=== PATIENT | female | born 1985 | race Caucasian/White ===

== ENCOUNTER 2018-04-29 10:18 | Outpatient (CLI) | payer OTHER ==
[~2018-04-29] VITALS: Ht 165.1 cm; Wt 101.9 kg
[~2018-04-29 10:18] MED LIST: DCS100C PO; DOCU100C37 PO; IBP800T PO; IBUP-1780 PO; LBT200T PO; OXYC-465 PO; OXYC1TAB12 PO; PREN1TAB71 PO
[2018-04-29] MEDS ORDERED: AMPH30TA2 PO (10:32)
[2018-04-29 10:36] VITALS: BP 128/82
[2018-04-29 11:19] LABS: BASOPHILS % (AUTO) 0 % (0-10); EOSINOPHILS # (AUTO) 0.2 10^3/uL (0.0-0.3); EOSINOPHILS % (AUTO) 2 % (0-10); HEMATOCRIT 43 % (35-52); HEMOGLOBIN 14.4 G/DL (11.5-16.0); LYMPHOCYTES # (AUTO) 2.4 X 10^3 (1.0-4.0); LYMPHOCYTES % (AUTO) 21 % (12-44); MEAN CORPUSCULAR HEMOGLOBIN 29 PG (25-34); MEAN CORPUSCULAR HGB CONC 33 G/DL (32-36); MEAN CORPUSCULAR VOLUME 87 FL (80-99); MEAN PLATELET VOLUME 9.5 FL (7.4-10.4); MONOCYTES # (AUTO) 0.9 X 10^3 (0.0-1.0); MONOCYTES % (AUTO) 8 % (0-12); NEUTROPHILS # (AUTO) 7.9 X 10^3 (1.8-7.8); NEUTROPHILS % (AUTO) 69 % (42-75); PLATELET COUNT 400 10^3/uL (130-400); RED BLOOD COUNT 4.99 10^6/uL (4.35-5.85); RED CELL DISTRIBUTION WIDTH 13.5 % (10.0-14.5); WHITE BLOOD COUNT 11.5 10^3/uL (4.3-11.0)
== END 2018-04-29 11:40 | disposition home or self-care (01) ==
LOC: PREOP 10:18
PROVIDERS: ATTEND Obstetrics & Gynecology
DX: Z01.812 Encounter for preprocedural laboratory examination (principal); Z11.2 Encounter for screening for other bacterial diseases; N93.8 Other specified abnormal uterine and vaginal bleeding; N92.0 Excessive and frequent menstruation with regular cycle; R10.2 Pelvic and perineal pain; D64.9 Anemia, unspecified
CPT/HCPCS: 36415; 85025; 86850; 86900; 86901; 87081

== ENCOUNTER 2018-05-01 06:10 | Day surgery (SDC) | payer OTHER ==
[~2018-05-01] VITALS: Ht 165.1 cm; Wt 100.8 kg
[~2018-05-01 06:10] MED LIST changes: +AMPH30TA2 PO
[2018-05-01 06:25] VITALS: BP 144/79
[2018-05-01] MEDS ORDERED: ceFAZolin INJECTION 1,000 MG in NS (IVPB) 50 ML IV ONE (06:30)
[2018-05-01] MEDS ORDERED: BUP/EPI 0.5% 1:200,000 (SENSORCAINE) 30 ML VIAL ONE (06:42)
[2018-05-01] MEDS ORDERED: ONDANSETRON 4 MG/2 ML (SDV) Z0FRAN ONE ×2 (06:49→07:00)
[2018-05-01] MEDS ORDERED: LIDOCAINE PF 2% 5 ML (XYLOCAINE) VIAL ONE (06:49)
[2018-05-01] MEDS ORDERED: ROCURONIUM 10 MG/ML 5 ML SYRINGE IV ONE (06:49)
[2018-05-01] MEDS ORDERED: LACTATED RINGERS 1,000 ML IV PRN (06:49)
[2018-05-01] MEDS ORDERED: LACTATED RINGERS 1,000 ML IV ONE (06:49)
[2018-05-01] MEDS ORDERED: proPOfol 200 MG/20 ML (DIPRIVAN) VIAL IV ONE (06:49)
[2018-05-01] MEDS ORDERED: MIDAZOLAM 2 MG/2 ML (VERSED) VIAL ONE (06:50)
[2018-05-01] MEDS ORDERED: fentaNYL INJECTION 100 MCG/2 ML AMP ONE ×3 (06:50→09:45)
[2018-05-01] MEDS ORDERED: DEXAMETHASONE 10 MG/ML (DECADRON) 1 ML VIAL ONE (06:55)
[2018-05-01] MEDS ORDERED: SEVOFLURANE (ULTANE) 15 ML INHAL SOLN ONE ×8 (06:55→09:09)
[2018-05-01] MEDS ORDERED: FAMOTIDINE 20MG/2ML IV (PEPCID) IV ONE (07:00)
[2018-05-01] MEDS ORDERED: SCOPOLAMINE 1.5 MG (TRANSDERM-SCOP) PATCH TOP ONE (07:00)
[2018-05-01] MEDS ORDERED: SCOPOLAMINE 1.5 MG (TRANSDERM-SCOP) PATCH ONE (07:00)
[2018-05-01] MEDS ORDERED: ONDANSETRON 4 MG/2 ML (SDV) Z0FRAN IV ONE (07:00)
[2018-05-01] MEDS ORDERED: FAMOTIDINE 20MG/2ML IV (PEPCID) ONE (07:01)
--- NOTE | 2018-05-01 07:33 | Progress Note-Pre Operative ---
Pre-Operative Progress Note H&P Reviewed The H&P was reviewed, patient examined and no changes noted. Date Seen by Provider: May 01, 2018 Time Seen by Provider: 07:33 Date H&P Reviewed: May 01, 2018 Time H&P Reviewed: 07:33 Pre-Operative Diagnosis: Dysfunctional bleeding/menorrhagia/chronic pelvic pain LATRELL KINSEY MD May 01, 2018 7:33 am
[2018-05-01] MEDS ORDERED: D5 LR IV SOLUTION 1,000 ML IV SCH (07:34)
--- NOTE | 2018-05-01 07:34 | Progress Note-Post Operative ---
Post-Operative Progess Note Surgeon (s)/Slope Tender (s) Surgeon LATRELL KINSEY MD Slope Tender: Tiff Werner Pre-Operative Diagnosis Dysfunctional bleeding/menorrhagia/chronic pelvic pain Post-Operative Diagnosis Same with pathology pending Procedure & Operative Findings Date of Procedure 05/01/18 Procedure Performed/Findings TLH with a bilateral salpingectomy Anesthesia Type GETA Estimated Blood Loss Estimated blood loss (mL): Minimal Specimens/Packing Specimens Removed Uterus and fallopian tubes Packing: None required LATRELL KINSEY MD May 01, 2018 07:34
[2018-05-01] MEDS ORDERED: IBUP-1780 PO (07:38)
[2018-05-01] MEDS ORDERED: DOCU-143 PO (07:38)
[2018-05-01] MEDS ORDERED: OXYC1TAB87 PO ×2 (07:38→09:45)
--- NOTE | 2018-05-01 07:39 | Discharge Instructions ---
Discharge Instructions Discharge Medications New, Converted or Re-Newed RX: RX on Chart Patient Instructions Patient Instructions: As directed Return to The Hospital For: DIRECTED Activity & Diet Discharge Diet: No Restrictions Activity as Tolerated: No Orders-Post D/C & Referrals Follow Up Appt: Return to clinic on Friday, May 04, 2018 at 930 a.m. for staple removal Call to make follow up appt. for patient in 4 weeks. Activity: Rest for 24 hours, than as tolerated. Wound Care: May remove Band-Aid tomorrow. Replace as desired. Keep incisions clean and dry. Wash daily with soap and water. Please call in RX to patient pharmacy. Diet: As tolerated-Clear Liquids only if nauseated. Tomorrow, may shower or tub bathe as desired. No driving for 24 hours, no alcoholic beverages for 24 hours, and nothing per vagina (no tampons, douching, or intercourse) for 8 weeks. Patient to return to the clinic as soon as possible for: Temperature greater than 101F, Severe Pain, Foul discharge from incision or vagina, Excessive Bleeding (more than a period). LATRELL KINSEY MD May 01, 2018 7:39 am
[2018-05-01] MEDS ORDERED: PROMETHAZINE INJ 25 MG/ML (PHENERGAN) AMP IM PRN (07:45)
[2018-05-01] MEDS ORDERED: oxyCODONE/APAP 5/325MG (PERCOCET 5) TABLET PO PRN ×2 (07:45→09:45)
[2018-05-01] MEDS ORDERED: KETOROLAC 30 MG/ML VIAL IVP SCH ×2 (07:45→15:30)
[2018-05-01] MEDS ORDERED: MEPERIDINE (DEMEROL) INJ 100 MG/ML IM PRN (07:45)
[2018-05-01] MEDS ORDERED: ONDANSETRON 4 MG/2 ML (SDV) Z0FRAN IVP PRN ×2 (07:45→09:30)
[2018-05-01] MEDS ORDERED: KETOROLAC 30 MG/ML VIAL ONE (09:07)
[2018-05-01] MEDS ORDERED: GLYCOPYRROLATE 0.2 MG/ML (ROBINUL) 2 ML VIAL ONE (09:08)
[2018-05-01] MEDS ORDERED: NEOSTIGMINE 1 MG/ML 5 ML SYRINGE ONE (09:08)
[2018-05-01] MEDS ORDERED: morphine INJ 10 MG/ML 1ML (SYR OR VIAL) ONE (09:28)
[2018-05-01] MEDS ORDERED: morphine INJ 10 MG/ML 1ML (SYR OR VIAL) IVP ONE (09:30)
[2018-05-01] MEDS ORDERED: fentaNYL INJECTION 100 MCG/2 ML AMP IVP ONE (09:30)
[2018-05-01] MEDS ORDERED: MEPERIDINE (DEMEROL) INJ 50 MG/ML IVP ONE (09:30)
[2018-05-01] MEDS ORDERED: KETOROLAC 30 MG/ML VIAL IVP ONE (09:30)
--- NOTE | 2018-05-01 09:57 | OPERATIVE REPORT ---
DATE OF SERVICE: 05/01/2018 PREOPERATIVE DIAGNOSES: Dysfunctional uterine bleeding, chronic pelvic pain, menorrhagia. POSTOPERATIVE DIAGNOSES: Dysfunctional uterine bleeding, chronic pelvic pain, menorrhagia with pathology pending. OPERATIVE PROCEDURE: Total laparoscopic hysterectomy with bilateral salpingectomy. OPERATIVE DESCRIPTION: With the patient in the supine position under satisfactory general anesthesia, she was repositioned in dorsal lithotomy position in the [facility] and prepped and draped in the usual fashion for abdominal and vaginal surgery using robotic assistance. Weighted speculum placed in the posterior fornix of vagina, cervix exposed and grasped anteriorly with single tooth tenaculum. Uterus was sounded to 13 cm with uterine sound. Cervix was then serially dilated with Mahin dilators to accommodate a Emilia II manipulator, which was placed and the bulb filled with sterile saline. Sutures of #1 Vicryl were placed at the 3 and 9 o'clock position of cervix to affix the uterus to the manipulator. The manipulator used a 6 mm x 8 cm uterine probe and a 25 mm colpotomy ring. Ragland catheter was placed in the urinary bladder and left to dependent drainage. The patient brought in low dorsolithotomy position. A 12 mm incision made superior to the umbilicus. Veress needle was placed through that incision, correct placement confirmed with water drop test. The abdomen was insufflated with 2.4 liters of carbon dioxide and the Veress needle was removed and attempt was made to place the 12 mm port at that site. That was unsuccessful. Rather than risk more trauma to the abdomen, a 5 mm port was then placed in the left upper quadrant. Then, under direct vision using the 5 mm scope, the right and left lower lateral ports were placed and it was noted that there were some adhesions on the anterior abdominal wall just under the umbilicus. These were taken down with EndoShears through the right lateral port and then 12 mm port was placed through the supraumbilical incision under direct vision using the 5 mm scope. The patient was now placed in Trendelenburg allowing the bowel to spill out of the pelvis. The operative instruments were placed after the da Crow column was advanced on to the patient and docked. I retired to the console. Using the vessel sealer on the right and bipolar fenestrated grasper on the left, the pelvis was first examined. The patient had ultrasound finding of a solid appearing mass on the right ovary. This was seemed to be a corpus luteal cyst. Both ovaries appeared normal. Decision made to follow the initial plan and that was to salvage both ovaries removed both fallopian tubes and the uterus. The appendix was identified. It was a normal vermiform appendix. The scope was brought back to the pelvis. The right fallopian tube was grasped and elevated. The mesosalpinx was clamped, cauterized and divided stepwise across to the uterus and then the utero-ovarian pedicle was clamped, cauterized and divided the broad ligament, round ligament and the cardinal ligament treating in the same manner. Same procedure performed on the left, allowing for removal of both fallopian tubes with the uterus and conserving both ovaries. Anterior lower uterine segment peritoneum was divided using a monopolar shear in place of the vessel sealer. Prior to this step, the right ureter bending easily seen peristalsing, the left ureter was not easily seen. The broad ligament leaves were opened and the ureter was identified directly in the retroperitoneal space and was well down out of the way on the left. Now with the bladder dissected down off the lower uterine segment, colpotomy incision was started at 12 o'clock position onto the colpotomy ring. That incision was extended circumferentially until the entire colpotomy ring was exposed. This allowed removal of the uterus with tubes still attached through the vaginal opening. The vaginal cuff was then closed with a running suture of V-Loc barbed suture and then a second suture was used to reperitonealize the pelvis and support each ovary on the stump of the round ligament on their respective sides. Good reapproximation was achieved. Good hemostasis was evident and the uterine artery pedicles were included in the closure of the vaginal cuff for of hemostasis. The pelvis was examined. There was no abnormal pathology and there was no bleeding. The procedure at this point was terminated. The operative instruments were removed under direct vision as were the ports. The patient was brought out of Trendelenburg. The abdomen was evacuated insufflating gas in the process of removing the ports. The fascia at the supraumbilical incision was closed with [id number]-[id number]-uszde suture of 2-0 Vicryl. The skin incisions were all stable. Speculum was replaced in the vagina finding that the vaginal cuff was completely reapproximated and completely hemostatic. The Ragland catheter was removed as the patient had requested do not have the catheter. The patient was then uneventfully awakened from general anesthesia and transferred to the recovery room in stable condition. Job ID: [id number] DocumentID: [id number] Dictated Date: 05/01/2018 09:11:24 Pillowcase Cutter Date: 05/01/2018 09:56:46 Dictated By: LATRELL KINSEY MD
[2018-05-01 10:30] VITALS: BP 119/77
[2018-05-01 16:35] VITALS: BP 138/89
[2018-05-02] MEDS ORDERED: DOCUSATE SODIUM 100 MG (COLACE) CAP PO SCH (09:00)
[2018-05-02] MEDS ORDERED: IBUPROFEN 800 MG (MOTRIN) TAB PO SCH (09:30)
--- NOTE | 2018-05-02 18:43 | Anesthesia-General Post-Op ---
General Patient Condition Mental Status/LOC: Same as Preop Cardiovascular: Satisfactory Nausea/Vomiting: Absent Respiratory: Satisfactory Pain: Controlled Complications: Absent Post Op Complications Complications None Follow Up Care/Instructions Patient Instructions None needed. Anesthesia/Patient Condition Patient Condition Patient is doing well, no complaints, stable vital signs, no apparent adverse anesthesia problems. No complications reported per nursing. ANTHONY CABRERA CRNA May 02, 2018 18:43
== END 2018-05-01 17:15 | disposition home or self-care (01) ==
LOC: SDC 06:10 → WS 09:54 → SDC 17:15
PROVIDERS: ATTEND Obstetrics & Gynecology
DX: N93.8 Other specified abnormal uterine and vaginal bleeding (principal); N92.0 Excessive and frequent menstruation with regular cycle; N84.0 Polyp of corpus uteri; N83.8 Other noninflammatory disorders of ovary, fallopian tube and broad ligament; R10.2 Pelvic and perineal pain; K21.9 Gastro-esophageal reflux disease without esophagitis; F98.8 Other specified behavioral and emotional disorders with onset usually occurring in childhood and adolescence; E66.9 Obesity, unspecified; Z68.36 Body mass index [BMI] 36.0-36.9, adult; Z79.899 Other long term (current) drug therapy
CPT/HCPCS: 84703; 86850; 86900; 86901; 88307; 94664

== ENCOUNTER 2018-05-09 19:26 | Emergency (ER) | payer OTHER ==
[~2018-05-09] VITALS: Ht 165.1 cm; Wt 99.8 kg
[~2018-05-09 19:26] MED LIST changes: +DOCU-143 PO; +OXYC1TAB87 PO
--- OUTSIDE RECORDS SUMMARY | 2018-05-09 19:31 | XMS REPORT | Continuity of Care Document ---
Author Author [facility] Organization [facility] Address Unknown Phone Unavailable Allergies Active Description Code Type Severity Reaction Onset Reported/Identified Relationship to Patient Clinical Status Yes No Known Drug Allergies [id number] Drug Allergy Unknown N/A 04/29/2018 Medications Medication Packaging Start Date Stop Date Route Dosage Sig [id number] 10/14 MEDROL 10/14/2014 ORAL 11 as directed FLUTICASONE PROPIONATE 2014 Nasal 1616 daily AMOXICILLIN 10/14/2014 ORAL 2020 twice daily Problems Date Dx Coded Attending Type Code Diagnosis Diagnosed By 09/15/2014 LATRELL KINSEY MD Ot 278.01 MORBID OBESITY 09/15/2014 LATRELL KINSEY MD Ot 642.61 ECLAMPSIA-DELIVERED 09/15/2014 LATRELL KINSEY MD Ot 649.11 OBESITY COMP PREG/CHILDBIRTH/PUERPERIUM, 09/15/2014 LATRELL KINSEY MD Ot 652.51 HIGH HEAD AT TERM-DELIV 09/15/2014 LATRELL KINSEY MD Ot 653.41 FETOPELV DISPROPOR-DELIV 09/15/2014 LATRELL KINSEY MD Ot 660.11 BONY PELV OBSTRUCT-DELIV 09/15/2014 LATRELL KINSEY MD Ot 665.71 OB PELVIC HEMATOMA-DELIV 09/15/2014 LATRELL KINSEY MD Ot V06.1 [id number]-OBLOIGF-YVVOSOBNH, COMBINED [ 09/15/2014 LATRELL KINSEY MD Ot V27.0 DELIVER-SINGLE LIVEBORN 09/15/2014 LATRELL KINSEY MD Ot V85.42 BODY MASS INDEX 45.0-49.9, ADULT 02/01/2016 LATRELL KINSEY MD Ot O28.8 OTHER ABNORMAL FINDINGS ON SCR 02/01/2016 LATRELL KINSEY MD, Ot Z3A.00 WEEKS OF GESTATION OF NOT SPEC 02/01/2016 LATRELL KINSEY MD, Ot O28.8 OTHER ABNORMAL FINDINGS ON SCR 02/01/2016 LATRELL KINSEY MD, Ot Z3A.00 WEEKS OF GESTATION OF NOT SPEC 02/06/2016 LATRELL KINSEY MD, Ot O28.8 OTHER ABNORMAL FINDINGS ON SCR 02/06/2016 LATRELL KINSEY MD, Ot Z3A.00 WEEKS OF GESTATION OF NOT SPEC 02/06/2016 LATRELL KINSEY MD, Ot D64.9 ANEMIA, UNSPECIFIED 02/06/2016 LATRELL KINSEY MD, Ot K42.9 UMBILICAL HERNIA WITHOUT OBSTRUCTION OR 02/06/2016 LATRELL KINSEY MD, Ot O34.21 MATERNAL CARE FOR SCAR FROM PREVIOUS LATOYA 02/06/2016 LATRELL KINSEY MD, Ot O99.019 ANEMIA COMPLICATING , UNSPECIFI 02/06/2016 LATRELL KINSEY MD, Ot O99.619 DISEASES OF THE DGSTV SYS COMP 02/06/2016 LATRELL KINSEY MD, Ot Z01.818 ENCOUNTER FOR OTHER PREPROCEDURAL EXAMIN 02/06/2016 LATRELL KINSEY MD, Ot Z11.2 ENCOUNTER FOR SCREENING FOR OTHER BACTER 02/06/2016 LATRELL KINSEY MD, Ot Z3A.00 WEEKS OF GESTATION OF NOT SPEC 02/07/2016 LATRELL KINSEY MD, Ot O28.8 OTHER ABNORMAL FINDINGS ON SCR 02/07/2016 LATRELL KINSEY MD, Ot Z3A.00 WEEKS OF GESTATION OF NOT SPEC 02/07/2016 LATRELL KINSEY MD, Ot O28.8 OTHER ABNORMAL FINDINGS ON SCR 02/07/2016 LATRELL KINSEY MD, Ot Z3A.00 WEEKS OF GESTATION OF NOT SPEC 02/08/2016 LATRELL KINSEY MD, Ot O14.03 MILD TO MODERATE PRE-ECLAMPSIA, THIRD TR 02/09/2016 LATRELL KINSEY MD, Ot K42.9 UMBILICAL HERNIA WITHOUT OBSTRUCTION OR 02/09/2016 LATRELL KINSEY MD, Ot O13.3 GESTATIONAL HTN W/O SIGNIFICANT PROTEINU 02/09/2016 LATRELL KINSEY MD, Ot O14.93 UNSPECIFIED PRE-ECLAMPSIA, THIRD TRIMEST 02/09/2016 LATRELL KINSEY MD, Ot O69.81X0 LABOR AND DEL COMP BY CORD AROUND NECK, 02/09/2016 LATRELL KINSEY MD, Ot O99.62 DISEASES OF THE DIGESTIVE SYSTEM COMPLIC 02/09/2016 LATRELL KINSEY MD, Ot O99.824 STREPTOCOCCUS B CARRIER STATE COMPLICATI 02/09/2016 LATRELL KINSEY MD, Ot O9A.22 INJ/POISN/OTH CONSEQ OF EXTERNAL CAUSES 02/09/2016 LATRELL KINSEY MD, Ot T21.22XA BURN OF SECOND DEGREE OF ABDOMINAL WALL, 02/09/2016 LATRELL KINSEY MD, Ot X12.XXXA CONTACT WITH OTHER HOT FLUIDS, INITIAL E 02/09/2016 LATRELL KINSEY MD, Ot Y99.8 OTHER EXTERNAL CAUSE STATUS 02/09/2016 LATRELL KINSEY MD, Ot Z23 ENCOUNTER FOR IMMUNIZATION 02/09/2016 LATRELL KINSEY MD, Ot Z37.0 SINGLE LIVE 02/09/2016 LATRELL KINSEY MD, Ot Z3A.37 37 WEEKS GESTATION OF 02/14/2016 LATRELL KINSEY MD, Ot O14.03 MILD TO MODERATE PRE-ECLAMPSIA, THIRD TR 04/22/2016 LATRELL KINSEY MD, Ot O14.03 MILD TO MODERATE PRE-ECLAMPSIA, THIRD TR 05/15/2016 LATRELL KINSEY MD, Ot O14.03 MILD TO MODERATE PRE-ECLAMPSIA, THIRD TR 04/22/2018 LATRELL KINSEY MD, Ot O14.03 MILD TO MODERATE PRE-ECLAMPSIA, THIRD TR 04/29/2018 LATRELL KINSEY MD, Ot O28.8 OTHER ABNORMAL FINDINGS ON SCR 04/29/2018 LATRELL KINSEY MD, Ot Z3A.00 WEEKS OF GESTATION OF NOT SPEC Procedures Code Description Performed By Performed On 70.79 VAGINAL REPAIR NEC 09/13/2014 74.1 LOW CERVICAL 09/13/2014 [id number] REPAIR ABDOMINAL WALL, OPEN APPROACH 02/07/2016 [id number] EXTRACTION OF POC, LOW CERVICAL, OPEN AP 02/07/2016 Results Test Result Range Urine protein/creatinine mass ratio - 01/31/16 10:53 Urine protein measurement (mass/volume) 22 mg/dL 6-12 Urine creatinine measurement (mass/volume) 125 mg/dL 30- 125 Urine protein/creatinine mass ratio 0.18 NRG Urine protein/creatinine mass ratio - 02/06/16 10:32 Urine protein measurement (mass/volume) 49 mg/dL 6-12 Urine creatinine measurement (mass/volume) 191 mg/dL 30- 125 Urine protein/creatinine mass ratio 0.26 NRG Methicillin resistant Staphylococcus aureus (MRSA) screening culture - 11:10 Methicillin resistant Staphylococcus aureus (MRSA) screening culture NEG NRG Complete blood count (CBC) with automated white blood cell (WBC) differential - 02/07/16 11:46 Blood leukocytes automated count (number/volume) 15.5 10*3/uL 4.3-11.0 Blood erythrocytes automated count (number/volume) 4.77 10*6/uL 4.35-5.85 Venous blood hemoglobin measurement (mass/volume) 14.5 g/dL 11.5-16.0 Blood hematocrit (volume fraction) 42 % 35-52 Automated erythrocyte mean corpuscular volume 87 [foz_us] 80-99 Automated erythrocyte mean corpuscular hemoglobin (mass per erythrocyte) 30 pg 25-34 Automated erythrocyte mean corpuscular hemoglobin concentration measurement ( mass/volume) 35 g/dL 32-36 Automated erythrocyte distribution width ratio 14.5 % 10.0-14.5 Automated blood platelet count (count/volume) 242 10*3/uL 130-400 Automated blood platelet mean volume measurement 11.3 [foz_us] 7.4-10.4 Automated blood neutrophils/100 leukocytes 77 % 42-75 Automated blood lymphocytes/100 leukocytes 15 % 12-44 Blood monocytes/100 leukocytes 7 % 0-12 Automated blood eosinophils/100 leukocytes 1 % 0-10 Automated blood basophils/100 leukocytes 0 % 0-10 Blood neutrophils automated count (number/volume) 11.9 10*3 1.8-7.8 Blood lymphocytes automated count (number/volume) 2.3 10*3 1.0-4.0 Blood monocytes automated count (number/volume) 1.1 10*3 0.0-1.0 Automated eosinophil count 0.2 10*3/uL 0.0-0.3 Automated blood basophil count (count/volume) 0.1 10*3/uL 0.0-0.1 Blood manual differential performed detection - 02/07/16 11:46 Blood monocytes/100 leukocytes 6 % NRG Manual blood segmented neutrophils/100 leukocytes 75 % NRG Blood band neutrophils/100 leukocytes 0 % NRG Manual blood lymphocytes/100 leukocytes 18 % NRG Manual eosinophils/100 leukocytes in nose 1 % NRG Manual blood basophils/100 leukocytes 0 % NRG Blood anisocytosis detection by light microscopy SLIGHT NRG Blood macrocytes detection by light microscopy SLIGHT NRG Blood type T Indirect antibody screen panel - 02/07/16 11:46 ABO+Rh group OP NRG Transfusion band number [id number] NRG Blood group antibody screen NEGATIVE NRG Complete blood count (CBC) with automated white blood cell (WBC) differential - 04/29/18 10:50 Blood leukocytes automated count (number/volume) 11.5 10*3/uL 4.3-11.0 Blood erythrocytes automated count (number/volume) 4.99 10*6/uL 4.35-5.85 Venous blood hemoglobin measurement (mass/volume) 14.4 g/dL 11.5-16.0 Blood hematocrit (volume fraction) 43 % 35-52 Automated erythrocyte mean corpuscular volume 87 [foz_us] 80-99 Automated erythrocyte mean corpuscular hemoglobin (mass per erythrocyte) 29 pg 25-34 Automated erythrocyte mean corpuscular hemoglobin concentration measurement ( mass/volume) 33 g/dL 32-36 Automated erythrocyte distribution width ratio 13.5 % 10.0-14.5 Automated blood platelet count (count/volume) 400 10*3/uL 130-400 Automated blood platelet mean volume measurement 9.5 [foz_us] 7.4-10.4 Automated blood neutrophils/100 leukocytes 69 % 42-75 Automated blood lymphocytes/100 leukocytes 21 % 12-44 Blood monocytes/100 leukocytes 8 % 0-12 Automated blood eosinophils/100 leukocytes 2 % 0-10 Automated blood basophils/100 leukocytes 0 % 0-10 Blood neutrophils automated count (number/volume) 7.9 10*3 1.8-7.8 Blood lymphocytes automated count (number/volume) 2.4 10*3 1.0-4.0 Blood monocytes automated count (number/volume) 0.9 10*3 0.0-1.0 Automated eosinophil count 0.2 10*3/uL 0.0-0.3 Automated blood basophil count (count/volume) 0.0 10*3/uL 0.0-0.1 Blood type T Indirect antibody screen panel - 04/29/18 10:50 ABO+Rh group OP NRG Blood group antibody screen NEGATIVE NRG Encounters ACCT No. Visit Date/Time Discharge Status Pt. Type Provider Facility Loc./Unit Complaint [id number] 05/01/2018 09:30:00 05/01/2018 23:59:59 CLS Preadmit LATRELL KINSEY MD [facility] DYSFUNCTIONAL UTERINE BLEEDING,CHRONIC PELVIC PAIN [id number] 04/29/2018 10:18:00 04/29/2018 11:40:00 DIS Outpatient LATRELL KINSEY MD [facility] PREOP DYSFUNCTIONAL UTERINE BLEEDING,CHRONIC PELVIC PAIN [id number] 02/07/2016 11:07:00 02/09/2016 13:49:00 DIS Inpatient LATRELL KINSEY MD [facility] LDRP PREVIOUS SECTION; UMBILICAL HERNIA [id number] 02/06/2016 10:32:00 02/06/2016 23:59:59 CLS Outpatient LATRELL KINSEY MD [facility] LABT MILD TO MODERATE PRE ECLAMPSIA, THIRD TRIMESTER [id number] 02/06/2016 10:53:00 02/06/2016 11:15:00 DIS Outpatient LATRELL KINSEY MD [facility] PREOP PREVIOUS SECTION ; UMBILICAL HERNIA [id number] 01/31/2016 11:45:00 01/31/2016 23:59:59 CLS Outpatient LATRELL KINSEY MD [facility] LABT OTHER ABNORMAL FINDINGS ON SCREENING [id number] 09/12/2014 14:58:00 09/15/2014 19:00:00 DIS Inpatient LATRELL KINSEY MD [facility] LDRP INDUCTION [id number] 10/19/2014 15:39:35 10/19/2014 15:39:35 DIS Outpatient [id number] 10/14/2014 11:15:56 Document Registration [id number] 10/14/2014 11:15:53 Document Registration [id number] 10/14/2014 11:13:39 Document Registration [id number] 10/14/2014 11:13:35 Document Registration [id number] 10/14/2014 11:13:31 Document Registration [id number] 10/14/2014 11:13:27 Document Registration [id number] 10/14/2014 11:13:23 Document Registration [id number] 10/14/2014 11:13:02 Document Registration [id number] 10/14/2014 11:12:58 Document Registration [id number] 10/14/2014 11:12:55 Document Registration [id number] 10/14/2014 11:12:51 Document Registration [id number] 10/14/2014 11:12:48 Document Registration [id number] 10/14/2014 11:12:44 Document Registration [id number] 10/14/2014 11:12:40 Document Registration [id number] 10/14/2014 11:12:36 Document Registration [id number] 10/14/2014 11:12:32 Document Registration [id number] 10/14/2014 11:12:24 Document Registration [id number] 10/14/2014 11:12:20 Document Registration [id number] 10/14/2014 11:12:15 Document Registration [id number] 10/14/2014 11:12:11 Document Registration [id number] 10/14/2014 11:12:08 Document Registration [id number] 10/14/2014 11:12:04 Document Registration [id number] 10/14/2014 11:11:59 Document Registration [id number] 10/14/2014 11:11:55 Document Registration [id number] 10/14/2014 11:11:51 Document Registration [id number] 10/14/2014 11:11:48 Document Registration [id number] 10/14/2014 11:11:44 Document Registration [id number] 10/14/2014 11:11:40 Document Registration [id number] 10/14/2014 11:11:35 Document Registration [id number] 10/14/2014 11:11:31 Document Registration [id number] 10/14/2014 11:11:27 Document Registration [id number] 10/14/2014 11:11:24 Document Registration [id number] 10/14/2014 11:11:20 Document Registration [id number] 10/14/2014 11:11:16 Document Registration [id number] 10/14/2014 11:11:13 Document Registration [id number] 10/14/2014 11:11:09 Document Registration [id number] 10/14/2014 11:11:05 Document Registration [id number] 10/14/2014 11:11:01 Document Registration [id number] 10/14/2014 11:10:52 Document Registration [id number] 10/14/2014 11:10:47 Document Registration [id number] 10/14/2014 11:10:44 Document Registration [id number] 10/14/2014 11:10:37 Document Registration [id number] 10/14/2014 11:10:33 Document Registration [id number] 10/14/2014 11:10:26 Document Registration [id number] 10/14/2014 11:10:22 Document Registration
[2018-05-09 20:36] LABS: BASOPHILS # (AUTO) 0.1 10^3/uL (0.0-0.1); BASOPHILS % (AUTO) 0 % (0-10); EOSINOPHILS # (AUTO) 0.4 10^3/uL (0.0-0.3); EOSINOPHILS % (AUTO) 4 % (0-10); HEMATOCRIT 44 % (35-52); HEMOGLOBIN 14.8 G/DL (11.5-16.0); LYMPHOCYTES # (AUTO) 2.5 X 10^3 (1.0-4.0); LYMPHOCYTES % (AUTO) 22 % (12-44); MEAN CORPUSCULAR HEMOGLOBIN 29 PG (25-34); MEAN CORPUSCULAR HGB CONC 34 G/DL (32-36); MEAN CORPUSCULAR VOLUME 87 FL (80-99); MEAN PLATELET VOLUME 9.3 FL (7.4-10.4); MONOCYTES # (AUTO) 0.9 X 10^3 (0.0-1.0); MONOCYTES % (AUTO) 8 % (0-12); NEUTROPHILS # (AUTO) 7.5 X 10^3 (1.8-7.8); NEUTROPHILS % (AUTO) 66 % (42-75); PLATELET COUNT 384 10^3/uL (130-400); RED BLOOD COUNT 5.03 10^6/uL (4.35-5.85); RED CELL DISTRIBUTION WIDTH 14.1 % (10.0-14.5); WHITE BLOOD COUNT 11.3 10^3/uL (4.3-11.0)
[2018-05-09 20:59] LABS: ALANINE AMINOTRANSFERASE 31 U/L (0-55); ALBUMIN 4.8 GM/DL (3.2-4.5); ALKALINE PHOSPHATASE 85 U/L (40-136); BILIRUBIN,TOTAL 0.6 MG/DL (0.1-1.0); BUN/CREATININE RATIO 14; CALCIUM 10.2 MG/DL (8.5-10.1); CARBON DIOXIDE 25 MMOL/L (21-32); CHLORIDE 105 MMOL/L (98-107); CREATININE SERUM 0.85 MG/DL (0.60-1.30); GFR ESTIMATED > 60; GLUCOSE 100 MG/DL (70-105); POTASSIUM 3.8 MMOL/L (3.6-5.0); SODIUM 142 MMOL/L (135-145); TOTAL PROTEIN 8.6 GM/DL (6.4-8.2)
--- NOTE | 2018-05-09 21:01 | ED Integumentary General ---
General Chief Complaint: -Female Stated Complaint: POST HYSTERECTOMY BLEEDING Nursing Triage Note: PT AMB TO ROOM #7 HOLDING ABD. A&OX4. C/O POST OP BLEEDING FROM HYSTERECTOMY SURGICAL INCISION PREFORMED ON 05/01/18. PT REPORTS APPROX 1500 ON THIS DAY 2 STERI-STRIPS FROM INCISION FELL OFF AND SITE BEGAN TO BLEED. PT REPORTS SHE ATTEMPTED TO STOP BLEEDING ON HER OWN BUT WAS UNABLET TO. REPORTS INCREASE IN BLEEDING WHEN SHE STAND UP. UPON ARRIVAL WASH CLOTH HELD OVER SURGICAL SITE AND DISCARDED FOR CLEAN GAUZE. DARK RED CONTROLLED BLEEDING NOTED. PT DENIES RECENT FEVER OR CHILLS. DENIES ABD PAIN. Source: patient Exam Limitations: no limitations History of Present Illness Date Seen by Provider: May 09, 2018 Time Seen by Provider: 20:16 Initial Comments Patient is a 32-year-old female who presents to the emergency room with complaints postop bleeding from her hysterectomy that was on 05/01/18. She reports that she had some dark-colored bleeding from the Steri-Strip in the incision site just distal to the umbilicus. She reports that she has seen Dr. Santos for her postop appointment this week and he reported to her that she had a large hematoma in that area and it will most likely need evacuated at some point. She arrived with a washcloth over the area that had minimal dark- colored blood on it. She reports it is worse when she stands up. She denies any pain, fevers Timing/Duration: this afternoon Associated Symptoms: denies symptoms Allergies and Home Medications Allergies Coded Allergies: No Known Drug Allergies (Unverified , 04/29/18) Home Medications Dextroamphetamine/Amphetamine 30 Mg Tablet, 30 MG PO BID, (Reported) Docusate Sodium 100 Mg Capsule, 100 MG PO BID Prescribed by: LATRELL INGRAM on 05/01/18 0738 Ibuprofen 800 Mg Tablet, 800 MG PO Q6H PRN for PAIN Prescribed by: LATRELL INRGAM on 05/01/18 0738 Oxycodone HCl/Acetaminophen 1 Each Tablet, 1 EACH PO Q4H PRN for PAIN-MODERATE Prescribed by: LATRELL INGRAM on 05/01/18 0738 Oxycodone HCl/Acetaminophen 1 Each Tablet, 1 TAB PO Q4H PRN for PAIN-MODERATE Prescribed by: LATRELL INGRAM on 05/01/18 0945 Patient Home Medication List Home Medication List Reviewed: Yes Review of Systems Review of Systems Constitutional: see HPI; No chills, No fever Skin: see HPI, other (Bleeding wound to abdominal wall. below umbilicis . ) All Other Systems Reviewed Negative Unless Noted: Yes Past Frjmhpz-Pyoufu-Eitbpi Hx Past Med/Social Hx: Reviewed Nursing Past Med/Soc Hx Patient Social History Alcohol Use: Rarely Uses Recreational Drug Use: No Smoking Status: Never a Smoker 2nd Hand Smoke Exposure: No Recent Foreign Travel: No Contact w/Someone Who Travel: No Recent Infectious Disease Expo: No Recent Hopitalizations: No Physical Abuse: No Sexual Abuse: No Immunizations Up To Date Tetanus Booster (TDap): Less than 5yrs PED Vaccines UTD: No Seasonal Allergies Seasonal Allergies: Yes Past Medical History Surgeries: Yes (CS X3, UMBILICAL HERNIA) Section, Hysterectomy, Tonsillectomy Respiratory: No Cardiac: No Neurological: No Reproductive Disorders: Yes (DUB, CPP, FIBROID ) Female Reproductive Disorders: Menstrual Problems, Polycystic Ovarian Dis [employer] History: Hysterectomy Sexually Transmitted Disease: No HIV/AIDS: No Genitourinary: No Gastrointestinal: No Musculoskeletal: No Endocrine: No HEENT: No Loss of Vision: Bilateral Hearing Impairment: Denies Cancer: No Psychosocial: Yes (HX DEPRESSION) ADD/ADHD, Depression Integumentary: No Blood Disorders: No Adverse Reaction/Blood Tranf: No (N/A) Family Medical History Reviewed Nursing Family Hx Hypertension 19 FATHER, Onset:30's - 40 G8 SISTER, Onset:20's - 25 No Family History of: AIDS Abdominal aortic aneurysm Dayday's disease Alcoholism Alzheimer's disease Aphasia Arthritis Asthma Cancer of mouth Cardiovascular disease Cataracts Colon cancer Completed stroke Congenital disease Congenital heart disease Coronary thrombosis Cystic fibrosis Deafness or hearing loss Dementia Diabetes mellitus Drug abuse Dysphasia Fibrocystic disease of breast Gastroenteritis Glaucoma Headache disorder Hypercholesterolemia Infertility Kidney disease Myocardial infarction Neoplasm Not obtainable due to adoption Osteoporosis Parkinson's disease Prostate cancer Psychosocial problem Respiratory disorder Seizure disorder Severe allergy Thyroid disease Tuberculosis Visual disorder Physical Exam Vital Signs Capillary Refill : Less Than 3 Seconds General Appearance: WD/WN, no apparent distress Neck: non-tender, full range of motion, supple, normal inspection Cardiovascular: normal peripheral pulses, regular rate, rhythm, no edema, no gallop, no JVD, no murmur Respiratory: chest non-tender, lungs clear, normal breath sounds, no respiratory distress, no accessory muscle use Gastrointestinal: normal bowel sounds, non tender, soft, no organomegaly, no pulsatile mass Extremities: normal capillary refill Neurologic/Psychiatric: alert, normal mood/affect, oriented x 3 Skin: normal color, warm/dry, ecchymosis (diffrerent stages of healing ecchymosis to abdomen ) Skin Problem Location: torso (postop wound to abdominal wall just below umbilicus, laparoscopic port site.) Progress/Results/Core Measures Results/Orders Lab Results Laboratory Tests Test 05/09/18 20:30 Range/Units White Blood Count 11.3 H 4.3-11.0 10^3/uL Red Blood Count 5.03 4.35-5.85 10^6/uL Hemoglobin 14.8 11.5-16.0 G/DL Hematocrit 44 35-52 % Mean Corpuscular Volume 87 80-99 FL Mean Corpuscular Hemoglobin 29 25-34 PG Mean Corpuscular Hemoglobin Concent 34 32-36 G/DL Red Cell Distribution Width 14.1 10.0-14.5 % Platelet Count 384 130-400 10^3/uL Mean Platelet Volume 9.3 7.4-10.4 FL Neutrophils (%) (Auto) 66 42-75 % Lymphocytes (%) (Auto) 22 12-44 % Monocytes (%) (Auto) 8 0-12 % Eosinophils (%) (Auto) 4 0-10 % Basophils (%) (Auto) 0 0-10 % Neutrophils # (Auto) 7.5 1.8-7.8 X 10^3 Lymphocytes # (Auto) 2.5 1.0-4.0 X 10^3 Monocytes # (Auto) 0.9 0.0-1.0 X 10^3 Eosinophils # (Auto) 0.4 H 0.0-0.3 10^3/uL Basophils # (Auto) 0.1 0.0-0.1 10^3/uL Sodium Level 142 135-145 MMOL/L Potassium Level 3.8 3.6-5.0 MMOL/L Chloride Level 105 98-107 MMOL/L Carbon Dioxide Level 25 21-32 MMOL/L Anion Gap 12 5-14 MMOL/L Blood Urea Nitrogen 12 7-18 MG/DL Creatinine 0.85 0.60-1.30 MG/DL Estimat Glomerular Filtration Rate > 60 BUN/Creatinine Ratio 14 Glucose Level 100 70-105 MG/DL Calcium Level 10.2 H 8.5-10.1 MG/DL Corrected Calcium 8.5-10.1 MG/DL Total Bilirubin 0.6 0.1-1.0 MG/DL Aspartate Amino Transf (AST/SGOT) 22 5-34 U/L Alanine Aminotransferase (ALT/SGPT) 31 0-55 U/L Alkaline Phosphatase 85 40-136 U/L Total Protein 8.6 H 6.4-8.2 GM/DL Albumin 4.8 H 3.2-4.5 GM/DL My Orders Orders - BERTA ESPARZA Cbc With Automated Diff (05/09/18 20:08) Comprehensive Metabolic Panel (05/09/18 20:08) Iv Heplock-Insert (Order) (05/09/18 20:08) Vital Signs/I&O Blood Pressure Mean: 117 Progress Progress Note : Time: 20:30 Progress Note I have discussed the case with Dr. Salinas at this time and he recommends covering the wound with a dry sterile dressing and having the patient follow up in his office first thing friday. The patient agrees with plan of care. Return precautions were given. Dry sterile dressing was applied. Extra dressing supplies sent home with the patient for frequent changes. Departure Impression Primary Impression: Hematoma of abdominal wall Additional Impression: Postoperative bleeding from incision Disposition: 01 HOME, SELF-CARE Condition: Stable/Unchanged Departure-Patient Inst. Decision time for Depature: 20:59 Referrals: NO,LOCAL PHYSICIAN (PCP/Family) Primary Care Physician Patient Instructions: Surgical Wound (DC) Add. Discharge Instructions: Reinforce the dressing as needed and change if it becomes saturated. Watch for signs of infection such as increased redness, drainage, swelling, pain or if you should start to develop a fever. Follow-up with Dr. Santos's office Friday06/11/17 at 930 for reevaluation. Return back to the emergency room for any worsening symptoms or concerns as needed. All discharge instructions reviewed with patient and/or family. Voiced understanding. BERTA ESPARZA May 09, 2018 21:01
[2018-05-09 21:30] VITALS: BP 136/99
== END 2018-05-09 21:30 | disposition home or self-care (01) ==
LOC: EDUNIT# 19:26 → ER 19:27
DX: N99.820 Postprocedural hemorrhage of a genitourinary system organ or structure following a genitourinary system procedure (principal); M79.81 Nontraumatic hematoma of soft tissue; F90.9 Attention-deficit hyperactivity disorder, unspecified type; F32.9 Major depressive disorder, single episode, unspecified; Z90.710 Acquired absence of both cervix and uterus; Z98.890 Other specified postprocedural states; Z87.19 Personal history of other diseases of the digestive system; Z87.448 Personal history of other diseases of urinary system
CPT/HCPCS: 36415; 80053; 85025